=== PATIENT | male | born 1980 | race Caucasian/White ===

== ENCOUNTER 2024-10-20 15:35 | Emergency (ER) | payer BC ==
[2024-10-20] MEDS ORDERED: Sodium Chloride 0.9% 10 ML Syringe FLUSH PRN (15:55)
[2024-10-20 16:01] LABS: BASOPHILS ABSOLUTE AUTO 0.05 10^3/uL (0.00-0.10); BASOPHILS PERCENT AUTO 0.5 % (0.0-1.0); EOSINOPHILS ABSOLUTE AUTO 0.00 10^3/uL (0.10-0.30); EOSINOPHILS PERCENT AUTO 0.0 % (1.0-3.0); IMMATURE GRAN ABSOLUTE AUTO 0.13 10^3/uL (0.00-0.04); IMMATURE GRAN PERCENT AUTO 1.4 % (0.0-0.4); LYMPHOCYTES ABSOLUTE AUTO 0.77 10^3/uL (1.00-4.00); LYMPHOCYTES PERCENT AUTO 8.1 % (20.0-40.0); MEAN PLATELET VOLUME 13.3 fL (7.4-10.4); MONOCYTES ABSOLUTE AUTO 1.19 10^3/uL (0.10-0.80); MONOCYTES PERCENT AUTO 12.5 % (2.0-8.0); NEUTROPHILS ABSOLUTE AUTO 7.37 10^3/uL (2.50-7.00); NEUTROPHILS PERCENT AUTO 77.5 % (50.0-70.0); PLATELET COUNT,PLT 64 10^3/uL (150-400); RED BLOOD CELL COUNT 1.90 10^6/uL (4.50-6.00); RED CELL DISTRIBUTION WIDTH 19.3 % (11.5-14.5); WHITE BLOOD CELL COUNT,WBC 9.51 10^3/uL (5.00-10.00)
[2024-10-20] MEDS: LORazepam 2 MG/ML SDV IVPUSH ONE (16:24)
[2024-10-20 16:33] LABS: LACTIC ACID 20.2 mmol/L (0.4-2.0)
[2024-10-20 16:38] LABS: ALANINE AMINOTRANSFERASE,ALT 651.0 U/L (14-63); ASPARTATE AMNIOTRANSFERASE,AST 1740.0 U/L (15-37); BILIRUBIN TOTAL 12.1 mg/dL (0.2-1.0); BLOOD UREA NITROGEN,BUN 30.0 mg/dL (7-18); CARBON DIOXIDE,CO2 6.8 mmol/L (21.0-32.0); CHLORIDE,CL 98.0 mmol/L (98-107); CREATININE 2.11 mg/dL (0.51-1.17); EST CRCL DRUG DOSING (CG) 51.94 mL/min; ESTIMATED GFR 39.0 mL/min (>=60); POTASSIUM,K 5.9 mmol/L (3.5-5.1); PROTEIN TOTAL,TP 4.9 g/dL (6.4-8.2); SODIUM,NA 137.0 mmol/L (136-145)
[2024-10-20 16:45] LABS: GLUCOSE RANDOM 16.0 mg/dL (70-140); INR 2.4 (0.9-1.1); PTT,PARTIAL THROMBOPLSTIN TIME 41.4 SEC (21.6-32.4)
[2024-10-20] MEDS: LORazepam 2 MG/ML SDV ONE (17:12)
[2024-10-20 17:19] VITALS: BP 74/32
[2024-10-20 18:23] VITALS: PULSE 130
== END 2024-10-20 16:32 ==
LOC: KA.ED 15:35
DX: K92.2 Gastrointestinal hemorrhage, unspecified (principal); D64.9 Anemia, unspecified; E16.2 Hypoglycemia, unspecified; R74.01 Elevation of levels of liver transaminase levels; R74.02 Elevation of levels of lactic acid dehydrogenase [LDH]; D68.9 Coagulation defect, unspecified
CPT/HCPCS: 36415; 36430; 51702; 71045; 80053; 82150; 82270; 83605; 83690; 84484; 85025; 85610; 85730; 86140; 86850; 86900; 86901; 86920; 86922; 93010; 96361; 96365; 96375; 99291; 99291-25; J2060; J2470; J7030; J7050; P9016; Q3014